=== PATIENT | female | born 1940 | race Caucasian/White ===

== ENCOUNTER 2017-01-01 12:33 | Emergency (ER) | payer MEDICARE, BC ==
--- NOTE | 2017-01-01 12:41 | ED Physician Chart ---
Chief Complaint/HPI - Patient Information Date Seen:: 01/01/17 Time Seen:: 12:41 Chief Complaint:: cough and leg wound History of Present Illness:: 76-year-old female complains of acute, constant, moderate, worse at night, nonproductive, cough 3 days. Also has a Complaint of acute, constant, moderate to severe, open leg wound on the right benavidez that happened about 5 days ago. Has associated surrounding erythema of the wound. Denies fevers, shortness of breath, chest pain, palpitations, headache, nausea, vomiting. Historian:: Patient Review:: Nurse's Note Reviewed Review of Systems - Review of Systems Other: Complete system review otherwise unremarkable except as noted in history of present illness. Past Medical History - Past Medical History Past Medical History: HTN, PUD/GERD, Thyroid disorder, Other (amyloidosis, CK-MB , GERD, hypothyroidism, hypertension) Family History: None Social History: Non Smoker, No Alcohol, No Drug Use, Other Surgical History: None Psychiatricy History: None Medication: Reviewed Family Medical History - Family Member mother Living Status: Hx Family Cancer: Yes (bone) Physical Exam - Physical Examination Other:: INITIAL VITAL SIGNS: Reviewed by me GENERAL: Alert and interactive. No acute distress HEAD: Head is normocephalic and atraumatic EYES: EOMI. PERRL. No scleral icterus. No conjunctival injection ENT: Moist mucous membranes. NECK: Supple. No masses. Full range of motion RESPIRATORY: No tachypnea. Slightly prolonged respiratory phase bilaterally. No wheezing, rales, or rhonchi CV: Regular rate and rhythm. No murmurs, rubs, or gallops ABDOMEN: Soft, non-distended, non-tender. No guarding. No rebound. No masses. EXTREMITIES: No deformity. No cyanosis. No edema. SKIN: Right benavidez has a 4 x 2 cm open wound with surrounding erythema. NEUROLOGIC: Alert and oriented. Face is symmetric. Speech is normal. Moves all extremities equally. Motor and sensory distally intact. Labs/Radiology/EKG Results - Lab Results Results: Lab Results 01/01/17 Range/Units 13:10 Urine Source CLEAN C Urine Color YELLOW Urine Clarity SL. CLOUDY (CLEAR) Urine pH 6.5 Ur Specific [place] 1.025 (1.005-1.030) Urine Protein >300 H (NEGATIVE) mg/dL Urine Glucose (UA) NEGATIVE (NEGATIVE) mg/dL Urine Ketones NEGATIVE (NEGATIVE) mg/dL Urine Blood TRACE (NEGATIVE) Urine Nitrate NEGATIVE (NEGATIVE) Urine Bilirubin NEGATIVE (NEGATIVE) Urine Urobilinogen 0.2 (0.2 - 1.0) E.U./dL Ur Leukocyte Esterase SMALL H (NEGATIVE) Urine RBC 0-2 (0-5) /hpf Urine WBC 25-50 H (0-5) /hpf Ur Epithelial Cells OCCASIONAL (FEW) /lpf Urine Bacteria MANY (NONE SEEN) /hpf - Radiology Results Results: Single AP VIEW Portable Chest X-ray was interpreted independently and contemporaneously by Yu Conteh MD: No cardiomegaly Normal mediastinum No lung infiltrates No pneumothorax No soft tissue or bony abnormalities ED Septic Shock - . Is Septic Shock (SBP<90, OR Lactate>4 mmol\L) present?: No Reassessment (Disposition) - Reassessment Reassessment:: Patient presents with acute cough for the past 3 days. Has nonproductive cough. Has slightly poor respiratory phase bilaterally on exam. Likely has viral bronchitis. Also has wound to the right benavidez area. Wound appears to have some surrounding cellulitis. Gave IV Rocephin and IV fluids here in the ER. Also has urinary tract infection. We will prescribe antibiotics both oral and topical. Recommend follow-up with primary care 1-2 days for wound check. Return to ER precautions given. Patient says she understands and agrees with the plan. Reassessment Condition:: Improved - Diagnosis Diagnosis:: Acute cellulitis of right lower extremity, and initial visit Acute bronchitis, unspecified Acute urinary tract, unspecified, with hematuria - Aftercare/Follow up Instructions Aftercare/Follow-Up Instructions:: Counseled pt regarding lab results/diagnosis & need follow up, Refer to Discharge Instructions Medication Prescribed:: Cephalexin Doxycycline Mupirocin - Patient Disposition Discharge/Transfer:: Home Time:: 13:50 Condition at Disposition:: Improved ED Discharge Plan - Patient Disposition Admit/Discharge/Transfer: PT DISCHARGED HOME Condition at Disposition: Improved Instructions: Cellulitis, Urinary Tract Infection, Bronchitis, [id number]
[2017-01-01] MEDS: Sodium Chloride 0.9% 1,000 ML IV ONE (13:30)
[2017-01-01] MEDS: cefTRIAXone 1 GM in Sodium Chloride 0.9% 50 ML IV ONE (13:31)
[2017-01-01 13:36] LABS: URINE BILIRUBIN NEGATIVE (NEGATIVE); URINE BLOOD TRACE (NEGATIVE); URINE COLOR YELLOW; URINE GLUCOSE (UA) NEGATIVE (NEGATIVE); URINE KETONE NEGATIVE (NEGATIVE); URINE PH 6.5
[2017-01-01 13:37] LABS: URINE EPITHELIAL CELLS OCCASIONAL /lpf (FEW); URINE PROTEIN >300 mg/dL (NEGATIVE); URINE RBC 0-2 /hpf (0-5); URINE UROBILINOGEN 0.2 E.U./dL (0.2 - 1.0); URINE WBC 25-50 /hpf (0-5)
[2017-01-01 13:38] LABS: URINE BACTERIA MANY /hpf (NONE SEEN)
[2017-01-01] MEDS ORDERED: Bacitracin pkt 1 gm Pkt TP ONE (14:20)
[2017-01-01] MEDS: Bacitracin pkt 1 gm Pkt TP STA (14:34)
--- NOTE | 2017-01-01 15:24 | Diagnostic Imaging Report ---
Portable chest x-ray HISTORY: Cough The overall heart size is difficult to assess with portable technique in a poor inspiration. Atherosclerotic calcification seen in the aorta. No acute focal pulmonary processes. IMPRESSION: 1. No acute pulmonary processes 2. Atherosclerotic vascular changes
== END 2017-01-01 14:35 | disposition home or self-care (01) ==
LOC: ER 12:33
DX: L03.115 Cellulitis of right lower limb (principal); J20.9 Acute bronchitis, unspecified; N39.0 Urinary tract infection, site not specified; R31.9 Hematuria, unspecified; K21.9 Gastro-esophageal reflux disease without esophagitis; I10 Essential (primary) hypertension; E07.9 Disorder of thyroid, unspecified; Z88.0 Allergy status to penicillin; Z88.2 Allergy status to sulfonamides; Z88.6 Allergy status to analgesic agent
CPT/HCPCS: 71010-TC; 81001-TC; 87086-90; J0696; J7030; Z7610

== ENCOUNTER 2017-01-03 09:55 | Emergency (ER) | payer MEDICARE, BC ==
--- NOTE | 2017-01-03 10:47 | ED Physician Chart ---
Chief Complaint/HPI - Patient Information Date Seen:: 01/03/17 Time Seen:: 10:30 Chief Complaint:: retching History of Present Illness:: 10 days ago the patient was getting onto a plane and she scraped her right benavidez on the foot stand of the wheelchair she was using. She was seen here 2 days ago and prescribed Keflex 500 mg 4 times a day. The last 5 days patient has had a cooperative [place] white sputum. No recent fever. Chest x-ray was taken here 2 days ago and was reported to her as normal. Patient was retching all night last night which she attributes to the multiple medications she takes. Allergies:: Allergies Allergy/AdvReac Type Severity Reaction Status Date / Time codeine Allergy Verified 01/01/17 12:55 Penicillins Allergy Verified 01/01/17 12:55 Sulfa (Sulfonamide Allergy Verified 01/01/17 12:55 Antibiotics) Historian:: Patient Review:: Nurse's Note Reviewed Review of Systems - Review of Systems General/Constitutional: No fever, No chills Skin: Skin lesions Head: No headache Eyes: No loss of vision ENT: No earache Neck: No neck pain, No swelling Cardio Vascular: No chest pain Pulmonary: No SOB, Cough GI: No nausea, No vomiting G/U: No dysuria, No hematuria Musculoskeletal: Bone or joint pain Endocrine: No polyuria Psychiatric: No prior psych history, No depression, No anxiety Hematopoietic: No lymphadenopathy Allergic/Immuno: No urticaria Neurological: No syncope Past Medical History - Past Medical History Past Medical History: HTN, Other (leukemia; multiple myeloma; amyloidosis; renal insufficiency) Social History: Other Employment:: Former smoker; she occasionally uses alcohol Surgical History: None Psychiatricy History: None Medication: Reviewed Family Medical History - Family Member mother Living Status: Hx Family Cancer: Yes (bone) Physical Exam - Physical Examination General/Constitutional: Well-developed, well-nourished, Alert, No distress Head: Atraumatic Eyes: Lids, conjuctiva normal, PERRL Other Skin comments:: Right pretibial area: There is a triangular 3 cm area of epidermal avulsion with fat visible; about 12 cm of erythema surround the area of epidermal fashion ENMT: External ears, nose nl, Lips, teeth, gums nl, Oropharynx nl, Tonsils nl Neck: No nuchal rigidity Respiratory: Nl effort/Exclusion, Clear to Auscultation, No Wheeze/Rhonchi/Rales Cardio Vascular: RRR, No murmur, gallop, rubs GI: No tenderness/rebounding/guarding, No organomegaly, No hernia, Normal BS's : No CVA tenderness Other Extremities comments:: See above under skin Neuro/Psych: Alert/oriented, No focal deficits Misc: Normal back Assessment - Assessment General Assessment: Patient told to continue the Keflex ED Septic Shock - . Is Septic Shock (SBP<90, OR Lactate>4 mmol\L) present?: No Reassessment (Disposition) - Reassessment Reassessment Condition:: Unchanged - Diagnosis Diagnosis:: Abrasion right benavidez; cellulitis right benavidez - Aftercare/Follow up Instructions Aftercare/Follow-Up Instructions:: Refer to Discharge Instructions Medication Prescribed:: Zofran 4 mg oral disintegrating tablet #20 to take one every 4 hours as necessary for nausea and vomiting - Patient Disposition Discharge/Transfer:: Home Condition at Disposition:: Stable, Unchanged
== END 2017-01-03 10:59 | disposition home or self-care (01) ==
LOC: ER 09:55
DX: S80.811A Abrasion, right lower leg, initial encounter (principal); I10 Essential (primary) hypertension; L03.115 Cellulitis of right lower limb; Z88.6 Allergy status to analgesic agent; Z88.0 Allergy status to penicillin; Z88.2 Allergy status to sulfonamides; X58.XXXA Exposure to other specified factors, initial encounter; Y93.89 Activity, other specified; Y92.89 Other specified places as the place of occurrence of the external cause; Y99.8 Other external cause status
CPT/HCPCS: Z7502; Z7610

== ENCOUNTER 2017-01-04 10:09 | Inpatient (IN) | payer MEDICARE, BC ==
[2017-01-04 11:02] LABS: % BASOPHILS 0.6 % (0.0-2.0); % EOSINOPHILS 0.5 % (0.0-5.0); % LYMPHOCYTES 8.9 % (20.0-50.0); % MONOCYTES 6.2 % (2.0-10.0); % NEUTROPHILS 83.8 % (40.0-80.0); HEMATOCRIT 37.6 % (35.0-45.0); HEMOGLOBIN 12.4 gm/dL (11.7-16.1); MEAN CELL VOLUME 86.5 fl (81-100); MEAN CORPUSCULAR HEMOGLOBIN 28.5 pg (27.0-31.0); MEAN PLATELET VOLUME 6.7 fl; NEUTROPHILE ABSOLUTE 8.2 Th/cmm (1.8-8.0); PLATELET COUNT 191 Th/cmm (150-400); RED BLOOD COUNT 4.35 Mil/cmm (3.80-5.20); RED CELL DISTRIBUTION WIDTH 18.3 % (11.5-20.0); WHITE BLOOD COUNT 9.8 Th/cmm (4.8-10.8)
[2017-01-04] MEDS ORDERED: Sodium Chloride 0.9% 1,000 ML IV ONE (11:04)
[2017-01-04 11:15] LABS: ALB/GLOB RATIO 1.2 (1.0-1.8); ALKALINE PHOSPHATASE 101 U/L (34-104); ANION GAP 12.1 (7.0-16.0); BILIRUBIN,TOTAL 0.5 mg/dL (0.3-1.0); BUN - UREA NITROGEN 17 mg/dL (7-25); BUN/CREATININE RATIO 13.1; CALCIUM SERUM 9.6 mg/dL (8.6-10.3); CARBON DIOXIDE 20.8 mEq/L (21.0-31.0); CHLORIDE 99 mEq/L (98-107); CHOLESTEROL 128 mg/dL (<200); CREATININE - SERUM 1.3 mg/dL (0.6-1.2); GLUCOSE 71 mg/dL (70-105); POTASSIUM SERUM 3.9 mEq/L (3.5-5.1); SGOT 25 U/L (13-39); SGPT/ALT 15 U/L (7-52); SODIUM SERUM 128 mEq/L (136-145); TRIGLYCERIDES 119 mg/dL (<150)
[2017-01-04 11:17] LABS: INR 0.98 (0.5-1.4); PROTHROMBIN TIME (TEST) 10.2 SECONDS (9.5-11.5)
[2017-01-04] MEDS ORDERED: Lactated Ringer 1,000 ML IV ONE (12:47)
--- NOTE | 2017-01-04 12:52 | ED Physician Chart ---
Chief Complaint/HPI - Patient Information Date Seen:: 01/04/17 Time Seen:: 10:40 Chief Complaint:: ABDOMINAL PAIN History of Present Illness:: THIS IS A 76 YO FEMALE WITH SEVERAL DAYS OF GENERALIZED ABDOMINAL PAIN AND VOMITING. SHE HAS BEEN IN THIS ER TWICE OVER THE LAST WEEK FOR THE SAME SYMPTOMS. SHE IS NOW UNABLE TO KEEP ANY FOOD OR MEDICATION DOWN. SHE WAS TREATED FOR A UTI WITH KEFLEX AND DICLOXACILLIN. SHE STATES THAT SHE THINKS THAT THE ANTIBIOTICS MAKE HER SICK. SHE IS ALSO CONCERNED ABOUT HER NON-PRODUCTIVE COUGH THAT SHE HAS HAD FOR SEVERAL DAYS. Allergies:: Allergies Allergy/AdvReac Type Severity Reaction Status Date / Time codeine Allergy Verified 01/01/17 12:55 Penicillins Allergy Verified 01/01/17 12:55 Sulfa (Sulfonamide Allergy Verified 01/01/17 12:55 Antibiotics) Vitals:: Vital Signs - 8 hr 01/04/17 10:29 Temp 99.7 F HR 999 RR 16 O2 Sat % 98 Historian:: Patient Review:: Nurse's Note Reviewed, Old Chart Reviewed Review of Systems - Review of Systems General/Constitutional: No fever, No chills, No weight loss, No weakness, No diaphoresis, No edema, Loss of appetite Skin: No skin lesions, No rash, No bruising Head: No headache, No light-headedness Eyes: No loss of vision, No pain, No diplopia ENT: No earache, No nasal drainage, No sore throat, No tinnitus Neck: No neck pain, No swelling, No thyromegaly, No stiffness, No mass noted Cardio Vascular: No chest pain, No palpitations, No PND, No orthopnea, No edema Pulmonary: No SOB, Cough, No sputum, No wheezing GI: Nausea, Vomiting, No diarrhea, Pain, No melena, No hematochezia, No constipation, No hematemesis G/U: No dysuria, No frequency, Hematuria Musculoskeletal: No bone or joint pain, No back pain, No muscle pain Endocrine: No polyuria, No polydipsia Psychiatric: No prior psych history, No depression, No anxiety, No suicidal ideation Hematopoietic: No bruising, No lymphadenopathy Allergic/Immuno: No urticaria, No angioedema Neurological: No syncope, No focal symptoms, No weakness, No paresthesia, No headache, No seizure, No dizziness, No confusion, No vertigo Past Medical History - Past Medical History Obtainable: Yes Past Medical History: HTN, PUD/GERD, Thyroid disorder, Other (AMYLOIDOSIS) Family History: Heart disease, HTN Social History: Non Smoker, No Alcohol, No Drug Use Surgical History: None Psychiatricy History: None Medication: Reviewed Family Medical History - Family Member Father History Unknown: Yes Hx Family Coronary Artery Disease: Yes Hx Family Hypertension: Yes mother Living Status: Hx Family Cancer: Yes (bone) Hx Family Coronary Artery Disease: Yes Physical Exam - Physical Examination General/Constitutional: Awake, Well-developed, well-nourished, Alert, No distress, GCS 15, Non-toxic appearing, Ambulatory Head: Atraumatic Eyes: Lids, conjuctiva normal, PERRL, EOMI Skin: Nl inspection, No rash, No skin lesions, No ecchymosis, Well hydrated, No lymphadenopathy ENMT: External ears, nose nl, Nasal exam nl, Lips, teeth, gums nl Neck: Nontender, Full ROM w/o pain, No JVD, No nuchal rigidity, No bruit, No mass, No stridor Respiratory: Nl effort/Exclusion, Clear to Auscultation Other Respiratory comments:: BILATERAL RHONCHI HEARD Cardio Vascular: RRR, No murmur, gallop, rubs, NL S1 S2 GI: No tenderness/rebounding/guarding (THERE IS TENDERNESS OVER THE EPIGASTRIC AREA.), No organomegaly, No hernia, Normal BS's, Nondistended, No mass/bruits, No McBurney tenderness : No CVA tenderness Extremities: No tenderness or effusion, Full ROM, normal strength in all extremities, No edema, Normal digits & nails Neuro/Psych: Alert/oriented, DTR's symmetric, Normal sensory exam, Normal motor strength, Judgement/insight normal, Mood normal, Normal gait, No focal deficits Misc: normal gait, Normal back, No paraspinal tenderness Labs/Radiology/EKG Results - Lab Results Results: Laboratory Tests 01/04/17 01/04/17 01/04/17 10:49 10:49 10:49 WBC 9.8 RBC 4.35 Hgb 12.4 Hct 37.6 MCV 86.5 MCH 28.5 MCHC Differential 33.0 RDW 18.3 Plt Count 191 MPV 6.7 Neutrophils % 83.8 H Lymphocytes % 8.9 L Monocytes % 6.2 Eosinophils % 0.5 Basophils % 0.6 PT 10.2 INR 0.98 PTT (Actin FS) 24.2 L Sodium 128 L Potassium 3.9 Chloride 99 Carbon Dioxide 20.8 L Anion Gap 12.1 BUN 17 Creatinine 1.3 H Est GFR ( Amer) TNP Est GFR (Non-Af Amer) TNP BUN/Creatinine Ratio 13.1 Glucose 71 Calcium 9.6 Total Bilirubin 0.5 AST 25 ALT 15 Alkaline Phosphatase 101 Troponin I Total Protein 7.1 Albumin 3.8 Globulin 3.3 Albumin/Globulin Ratio 1.2 Triglycerides 119 Cholesterol 128 LDL Cholesterol Direct 71 L HDL Cholesterol 36 TSH Ethyl Alcohol < 10 01/04/17 01/04/17 10:49 10:49 WBC RBC Hgb Hct MCV MCH MCHC Differential RDW Plt Count MPV Neutrophils % Lymphocytes % Monocytes % Eosinophils % Basophils % PT INR PTT (Actin FS) Sodium Potassium Chloride Carbon Dioxide Anion Gap BUN Creatinine Est GFR ( Amer) Est GFR (Non-Af Amer) BUN/Creatinine Ratio Glucose Calcium Total Bilirubin AST ALT Alkaline Phosphatase Troponin I 0.03 Total Protein Albumin Globulin Albumin/Globulin Ratio Triglycerides Cholesterol LDL Cholesterol Direct HDL Cholesterol TSH 6.87 H Ethyl Alcohol - EKG Interpretations EKG Time:: 13:12 Rate & Rhythm: rate =73, sius [place]: left Assessment - Assessment General Assessment: THIS PATIENT IS DEHYDRATED AND HAVING DIFFICULTY WITH ABDOMINAL PAIN FROM HER REACTION TO HER ANTIBIOTICS. SHE ALSO SIGNIFICANT NAUSEA. SINCE SHE NEEDS HYDRATION, HER TSH IS ELEVATED AND HER TROPONIN IS GOING UP, SHE WILL NEED TO BE MONITORED. ED Septic Shock - . Is Septic Shock (SBP<90, OR Lactate>4 mmol\L) present?: No - <6hrs of presentation: Vital Signs: Vital Signs - 8 hr 01/04/17 10:29 Temp 99.7 F HR 999 RR 16 O2 Sat % 98 Reassessment (Disposition) - Reassessment Reassessment Condition:: Improved - Diagnosis Diagnosis:: ABDOMINAL PAIN ALLERGIC REACTION THYROID DISEASE - Patient Disposition Discharge/Transfer:: Acute Care w/in this hosp Admitted to:: Telemetry Admitting Medical Physician:: Katty Townsend Condition at Disposition:: Improved ED Discharge Plan - Patient Disposition Admit/Discharge/Transfer: Acute Care w/in this hosp Condition at Disposition: Improved
[2017-01-04 12:55] LABS: URINE COLOR YELLOW
[2017-01-04 12:56] LABS: URINE BILIRUBIN NEGATIVE (NEGATIVE); URINE BLOOD TRACE (NEGATIVE); URINE GLUCOSE (UA) NEGATIVE (NEGATIVE); URINE KETONE NEGATIVE (NEGATIVE); URINE PH 6.5; URINE PROTEIN 100 mg/dL (NEGATIVE); URINE UROBILINOGEN 0.2 E.U./dL (0.2 - 1.0)
[2017-01-04 12:59] LABS: URINE BACTERIA OCCASIONAL /hpf (NONE SEEN); URINE EPITHELIAL CELLS OCCASIONAL /lpf (FEW); URINE WBC NONE SEEN /hpf (0-5)
[2017-01-04 13:09] LABS: AMPHETAMINE URINE NEGATIVE (NEGATIVE); BARBITURATES URINE NEGATIVE (NEGATIVE); METHADONE URINE NEGATIVE (NEGATIVE)
[2017-01-04] MEDS: Pantoprazole 40 mg EC Tab PO SCH (17:43)
[2017-01-04] MEDS: D5W w/20 mEq KCL 1,000 ML IV SCH (17:46)
[2017-01-04] MEDS ORDERED: Azithromycin 500 mg in 0.9% NS 250 mL IV ONE (23:15)
[2017-01-05] MEDS: Albuterol/Ipratropium Neb 3 ML AERS HHN SCH ×4 (00:14→18:41)
--- NOTE | 2017-01-05 01:09 | History & Physical ---
ADMIT DATE: 01/04/2017 CHIEF COMPLAINT: Cough, shortness of breath, generalized weakness, nausea, vomiting. HISTORY OF PRESENT ILLNESS: The patient is a 76-year-old female with long history of hypertension, hypothyroidism, amyloidosis, visiting from [place], presented to the Emergency Room with cough, shortness of breath and generalized weakness. The patient was evaluated by the ER physician. Initial workup significant for pneumonia, hyponatremia and dehydration. The patient was started on IV fluid, antibiotic, breathing treatment, and admitted to the hospital. She has nausea, no vomiting. No diarrhea. PAST MEDICAL HISTORY: Significant for hypertension, hypothyroidism, and amyloidosis. PAST SURGICAL HISTORY: Hysterectomy. ALLERGIES: None. MEDICATIONS: Follow admission reconciliation. SOCIAL HISTORY: No smoking, alcohol or drugs. FAMILY HISTORY: Noncontributory. REVIEW OF SYSTEMS: RENAL SYSTEM: No history of chronic renal disorder. CARDIOVASCULAR SYSTEM: No coronary artery disease. ENDOCRINE SYSTEM: She has history of hypothyroidism. GASTROINTESTINAL SYSTEM: No upper or lower gastrointestinal bleed. NEUROLOGICAL SYSTEM: No seizure disorder. MUSCULOSKELETAL SYSTEM: No muscular dystrophy. HEMATOLOGIC SYSTEM: No hematemesis. RESPIRATORY SYSTEM: She has pneumonia. PHYSICAL EXAMINATION: GENERAL: She is awake, alert, oriented. VITAL SIGNS: Temperature 98.6, heart rate 97, blood pressure 129/78. HEENT: Normocephalic. Pupils reacting to light and accommodation. Sclerae clear. NECK: Supple. Negative for lymphadenopathy, JVD or bruit. CHEST: ____ bilateral, mild diminished. No wheezing. HEART: S1, S2 normal, no gallop. ABDOMEN: Soft, bowel sounds positive. EXTREMITIES: No edema. NEUROLOGIC: She is awake, alert, oriented. No focal motor or sensory deficits. Cranial nerves 2-12 intact. LABORATORY DATA: White blood cells 9.8, hemoglobin 12.4, hematocrit 37.6, platelets 191. PT 12.2, INR 0.98. Sodium 128, potassium 3.9, BUN 70, creatinine 1.3. ASSESSMENT: 1. Pneumonia. 2. Hyponatremia. 3. Hypertension. 4. Hypothyroidism. 5. Amyloidosis. PLAN: The patient is in the hospital under Dr. Townsend's service. Started on IV fluids, regular diet. The patient will resume her medication and IV antibiotic, breathing treatment. CBC, CMP for tomorrow. The patient is a full code. [facility]# [id number]
--- NOTE | 2017-01-05 03:12 | Admit Criteria Form ---
Admit Criteria Forms - Admit Criteria Diagnosis: ABDOMINAL PAIN Clinical Indications for Admission to Inpatient Care (Place 'X' for any and all applicable criteria): Admission is indicated for ANY ONE of the following(1)(2)(3)(4)(5): [ ]I. Inpatient admission required rather than observation care (Also use Abdominal Pain: Observation Care, as appropriate) because of ANY ONE of the following: [ ]a) Severe pain requiring acute inpatient management [ ]b) Identification of etiology/finding that requires inpatient care (eg, aortic dissection, free air) [ ]c) Absent bowel sounds with complete ileus(6) [ ]d) Suspected toxic megacolon [ ]e) Severe electrolyte abnormalities requiring inpatient care [ ]f) High fever or infection requiring inpatient admission as indicated by ANY ONE of following(7)(8): [ ] i) Appropriate outpatient or observational care antimicrobial treatment unavailable, not effective, or not feasible [ ] ii) Documented bacteremia [ ] iii) Temperature > 104.9 degrees F (oral) [ ] iv) T >103.1 F (oral) or < 96.8 F(rectal) that does not respond to all emergency treatment measures [ ]g) Signs of intestinal obstruction [B] [ ]h) Hemodynamic instability [ ]i) IV fluid to replace significant ongoing losses (greater than 3 L/m2 per day) (12)(13) [ ]j) Percutaneous or open drainage (eg, abscess, biliary tract ) procedures [ ]k) Parenteral nutrition regimen that must be implemented on inpatient basis [ ]l) Other condition,treatment or monitoring requiring inpatient admission. [ ]II. Peritoneal signs present [ ]III. Surgery needed that cannot be performed on an ambulatory basis. [ ]IV. Evaluation requires patient to not eat or drink for extended period ( eg, more than 24 hours). [ ]V. Contraindications and/or Inappropriate clinical situations for Observational Care in patients with abdominal pain, when ANY ONE of the following is required: [ ]a) Thorough evaluation is required to prevent catastrophic events due to delays in diagnosing (e.g.Mesenteric ischemia) 1,3 [ ]b) Patient with severe pathology or with chronic symptoms unlikely to improve in the ED stay (3) [X]. General contraindications and/or Inappropriate clinical situations for Observational Care in patients with abdominal pain, when ANY ONE of the following is required: [X]a) Prediction of prolongation of LOS based on ANY ONE of the following may be considered as a contraindication for observational care 2, 3, 4, 5, 6, 7, 8, 9, 10, 11 [X]i) Age > 65 yrs. [ ]ii) Patient arriving by ambulance [ ]iii) Patient with high acuity [ ]iv) Patient requiring vital sign monitoring [X]v) Patient on IV medication [ ]b) Systolic blood pressures 180mmHg 3,12 [ ]c) Patient with altered mental status including delirium and other alteration of consciousness, (3) [ ]d) Patient whose discharge disposition will be to a half-way home or rehabilitation home should not be managed in Emergency Department Observation Unit. CMS rule requires 3 days hospital stay before such placement.3,13 [ ]e) Patient with failure to thrive due to broad array of etiologies 3,16,17 [ ]f) Inability to ambulate 3,14 Extended stay beyond goal length of stay may be needed for(2)(3): [ ]a) Persistent abdominal pain with suspected intra-abdominal process [ ]b) Diagnosed condition requiring continued stay (e.g., pancreatitis, complicated diverticulitis) [ ]c) Surgery (e.g., colectomy) The original [employer] content created by [employer] has been revised. The portions of the content which have been revised are identified through the use of italic text or in bold, and [facility] has neither reviewed nor approved the modified material.All other unmodified content is copyright [facility] [employer]. Please see references footnoted in the original [facility] edition 2016 Admit Criteria Met?: Yes
[2017-01-05 05:19] LABS: % EOSINOPHILS 0.2 % (0.0-5.0); % LYMPHOCYTES 5.2 % (20.0-50.0); % MONOCYTES 7.5 % (2.0-10.0); % NEUTROPHILS 87.1 % (40.0-80.0); HEMOGLOBIN 10.6 gm/dL (11.7-16.1); MEAN CELL VOLUME 85.6 fl (81-100); MEAN CORPUSCULAR HEMOGLOBIN 28.8 pg (27.0-31.0); MEAN CORPUSCULAR HGB CONC 33.7 pg (28.0-36.0); MEAN PLATELET VOLUME 6.6 fl; NEUTROPHILE ABSOLUTE 7.1 Th/cmm (1.8-8.0); PLATELET COUNT 160 Th/cmm (150-400); RED BLOOD COUNT 3.66 Mil/cmm (3.80-5.20); RED CELL DISTRIBUTION WIDTH 17.7 % (11.5-20.0); WHITE BLOOD COUNT 8.1 Th/cmm (4.8-10.8)
[2017-01-05 05:28] LABS: ALB/GLOB RATIO 1.1 (1.0-1.8); ALKALINE PHOSPHATASE 80 U/L (34-104); ANION GAP 12.2 (7.0-16.0); BILIRUBIN,TOTAL 0.3 mg/dL (0.3-1.0); BUN - UREA NITROGEN 15 mg/dL (7-25); BUN/CREATININE RATIO 12.5; CALCIUM SERUM 8.4 mg/dL (8.6-10.3); CARBON DIOXIDE 18.9 mEq/L (21.0-31.0); CHLORIDE 102 mEq/L (98-107); CREATININE - SERUM 1.2 mg/dL (0.6-1.2); GLUCOSE 94 mg/dL (70-105); MAGNESIUM 1.6 mg/dL (1.9-2.7); POTASSIUM SERUM 4.1 mEq/L (3.5-5.1); SGOT 20 U/L (13-39); SGPT/ALT 11 U/L (7-52); SODIUM SERUM 129 mEq/L (136-145)
[2017-01-05 05:39] LABS: HEMATOCRIT 31.4 % (35.0-45.0)
[2017-01-05] MEDS: Levothyroxine 0.05 Mg Tab PO SCH (06:46)
[2017-01-05] MEDS: D5W w/20 mEq KCL 1,000 ML IV SCH ×2 (06:47→18:14)
[2017-01-05] MEDS ORDERED: PREDNISONE PO SCH (09:00)
[2017-01-05] MEDS: cefTRIAXone 1 GM in Sodium Chloride 0.9% 50 ML IV SCH (09:22)
[2017-01-05] MEDS: Pantoprazole 40 mg EC Tab PO SCH ×2 (09:23→17:03)
[2017-01-05] MEDS: Azithromycin 500 MG in Sodium Chloride 0.9% 250 ML IV SCH (20:39)
[2017-01-06] MEDS: Albuterol/Ipratropium Neb 3 ML AERS HHN SCH ×4 (00:46→18:50)
[2017-01-06] MEDS: Levothyroxine 0.05 Mg Tab PO SCH (06:37)
[2017-01-06] MEDS: D5W w/20 mEq KCL 1,000 ML IV SCH (06:37)
[2017-01-06] MEDS: cefTRIAXone 1 GM in Sodium Chloride 0.9% 50 ML IV SCH (08:44)
[2017-01-06] MEDS: Pantoprazole 40 mg EC Tab PO SCH ×2 (08:45→16:54)
[2017-01-06] MEDS: Azithromycin 500 MG in Sodium Chloride 0.9% 250 ML IV SCH (21:36)
[2017-01-07] MEDS: Albuterol/Ipratropium Neb 3 ML AERS HHN SCH ×4 (00:41→18:48)
[2017-01-07] MEDS: D5W w/20 mEq KCL 1,000 ML IV SCH ×2 (03:54→18:27)
[2017-01-07 05:27] LABS: HEMATOCRIT 33.1 % (35.0-45.0); MEAN CELL VOLUME 86.4 fl (81-100); MEAN CORPUSCULAR HEMOGLOBIN 28.7 pg (27.0-31.0); MEAN CORPUSCULAR HGB CONC 33.1 pg (28.0-36.0); MEAN PLATELET VOLUME 6.2 fl; PLATELET COUNT 147 Th/cmm (150-400); RED BLOOD COUNT 3.83 Mil/cmm (3.80-5.20); RED CELL DISTRIBUTION WIDTH 18.2 % (11.5-20.0); WHITE BLOOD COUNT 6.9 Th/cmm (4.8-10.8)
[2017-01-07 05:43] LABS: ANION GAP 9.1 (7.0-16.0); BUN - UREA NITROGEN 12 mg/dL (7-25); CALCIUM SERUM 8.8 mg/dL (8.6-10.3); CARBON DIOXIDE 22.3 mEq/L (21.0-31.0); CHLORIDE 105 mEq/L (98-107); CREATININE - SERUM 1.2 mg/dL (0.6-1.2); GLUCOSE 59 mg/dL (70-105); POTASSIUM SERUM 4.4 mEq/L (3.5-5.1); SODIUM SERUM 132 mEq/L (136-145)
[2017-01-07] MEDS: Levothyroxine 0.05 Mg Tab PO SCH (06:36)
[2017-01-07] MEDS: Pantoprazole 40 mg EC Tab PO SCH ×2 (08:23→17:32)
[2017-01-07] MEDS: cefTRIAXone 1 GM in Sodium Chloride 0.9% 50 ML IV SCH (08:27)
[2017-01-07 08:29] LABS: BAND NEUTROPHILE 6 % (0-10); BASOPHIL 1 % (0-3); EOSINOPHIL 2 % (0-5); NEUTROPHILS 77 % (40-80); PLATELET ESTIMATE DECREASED PLATELETS (NORMAL); PLATELET MORPHOLOGY NORMAL (NORMAL); TOTAL CELLS COUNTED 100
--- NOTE | 2017-01-07 16:11 | Diagnostic Imaging Report ---
CT Chest without IV contrast HISTORY: Pain COMPARISON: Chest x-ray on the 01/01/[address] abdomen and pelvis on 01/07/2017. Technique: Axial images were obtained from the base of the neck to the upper abdomen without administration of IV contrast. Coronal reconstructions were made. Total DLP 217 CTD I 5.2 Findings: Evaluation of the mediastinum is limited due to lack of IV contrast. Ectatic aorta is seen measuring up to 3.6 cm. Moderate atherosclerotic vascular disease is noted. Heart size is normal. Trace pericardial fluid is noted. No mediastinal adenopathy. There is a moderate to large size hiatal hernia. There is elevation of the right hemidiaphragm. Chronic lung changes are seen with 1.8 cm bulla within the anterior aspect of the left upper lobe. Atelectatic and hypoventilatory lung changes are seen. Few patchy Nodular infiltrates are seen primarily of the right lower lobe with bibasal consolidative changes. The largest nodular infiltrate measures 1 cm within the right lower lobe. Trace bilateral pleural effusions are noted. No evidence of pneumothorax. Advanced degenerative changes of the spine are noted with scoliosis. Old lower thoracic spinal compression deformities are noted. IMPRESSION: Few patchy nodular bilateral lower lung zone infiltrates right greater than left, with bibasal consolidative changes. The largest nodular infiltrate measures 1 cm within the right lower lobe. Findings may be due to infectious pneumonia. Neoplastic process is less likely, however, clinical correlation and follow-up after resolution of acute symptoms is recommended for further assessment/monitoring. Trace bilateral pleural effusions. Moderate to large size hiatal hernia Moderate atherosclerosis with ectatic aorta measuring up to 3.6 cm.
--- NOTE | 2017-01-07 16:18 | Diagnostic Imaging Report ---
CT abdomen and pelvis without intravenous contrast Indication: Abdominal pain Comparison: Chest CT the same day, Technique: Axial images were obtained from the lung bases to the bilateral proximal femurs without IV contrast. Coronal reconstructions were made. total DLP: 455, CTDI8.6 FINDINGS: Bibasal infiltrates are seen with small bilateral effusions. Please refer to recent chest CT for further details. A moderate to large hiatal hernia is noted. Assessment of the solid organs is limited due to lack of IV contrast. No evidence of focal hepatic, splenic, or pancreatic lesions. No focal adrenal lesions. No hydronephrosis or focal renal lesions. Mild nonspecific bilateral perinephric inflammatory changes are noted. Distended urinary bladder is noted. Small fat-containing left inguinal hernia is noted. Diverticulosis is noted. Moderate stool is seen with throughout the colon with fluid and gas-filled distended loops of bowel. No evidence of acute appendicitis. No free air or free fluid. Moderate atherosclerosis is noted. Degenerative changes of the spine and pelvis are noted with spinal scoliosis. IMPRESSION: No evidence of acute appendicitis. Diverticulosis without evidence of diverticulitis. Moderate distended fluid-filled loops of bowel. Underlying inflammatory process cannot be excluded. Moderate to large sized hiatal hernia. Moderate atherosclerosis. Small fat-containing left inguinal hernia Distended urinary bladder.
[2017-01-07] MEDS: Azithromycin 500 MG in Sodium Chloride 0.9% 250 ML IV SCH (21:28)
[2017-01-08] MEDS: Albuterol/Ipratropium Neb 3 ML AERS HHN SCH ×4 (00:33→18:57)
[2017-01-08] MEDS: Levothyroxine 0.05 Mg Tab PO SCH (06:46)
[2017-01-08] MEDS: Venelex 60gm Tube TP SCH (09:05)
[2017-01-08] MEDS: Pantoprazole 40 mg EC Tab PO SCH ×2 (09:05→18:01)
[2017-01-08] MEDS: cefTRIAXone 1 GM in Sodium Chloride 0.9% 50 ML IV SCH (09:12)
[2017-01-08] MEDS: D5-0.45NS w/20 mEq KCL 1,000 ML IV SCH (13:55)
[2017-01-08] MEDS: Azithromycin 500 MG in Sodium Chloride 0.9% 250 ML IV SCH (20:48)
[2017-01-09] MEDS: Albuterol/Ipratropium Neb 3 ML AERS HHN SCH ×4 (00:59→19:28)
[2017-01-09] MEDS: Levothyroxine 0.05 Mg Tab PO SCH (06:47)
[2017-01-09 07:01] LABS: % BASOPHILS 0.1 % (0.0-2.0); % LYMPHOCYTES 6.5 % (20.0-50.0); % MONOCYTES 4.6 % (2.0-10.0); % NEUTROPHILS 87.8 % (40.0-80.0); HEMATOCRIT 32.3 % (35.0-45.0); HEMOGLOBIN 10.7 gm/dL (11.7-16.1); MEAN CELL VOLUME 85.3 fl (81-100); MEAN CORPUSCULAR HEMOGLOBIN 28.2 pg (27.0-31.0); MEAN CORPUSCULAR HGB CONC 33.1 pg (28.0-36.0); MEAN PLATELET VOLUME 6.6 fl; PLATELET COUNT 178 Th/cmm (150-400); RED BLOOD COUNT 3.79 Mil/cmm (3.80-5.20)
[2017-01-09 08:43] LABS: ALB/GLOB RATIO 1.2 (1.0-1.8); ALKALINE PHOSPHATASE 85 U/L (34-104); ANION GAP 9.5 (7.0-16.0); BILIRUBIN,TOTAL 0.4 mg/dL (0.3-1.0); BUN - UREA NITROGEN 13 mg/dL (7-25); BUN/CREATININE RATIO 9.3; CALCIUM SERUM 8.8 mg/dL (8.6-10.3); CARBON DIOXIDE 22.9 mEq/L (21.0-31.0); CHLORIDE 102 mEq/L (98-107); CREATININE - SERUM 1.4 mg/dL (0.6-1.2); GLUCOSE 75 mg/dL (70-105); POTASSIUM SERUM 4.4 mEq/L (3.5-5.1); SGOT 20 U/L (13-39); SGPT/ALT 12 U/L (7-52); SODIUM SERUM 130 mEq/L (136-145)
[2017-01-09] MEDS: Pantoprazole 40 mg EC Tab PO SCH ×2 (09:03→16:53)
[2017-01-09] MEDS: cefTRIAXone 1 GM in Sodium Chloride 0.9% 50 ML IV SCH (09:04)
[2017-01-09] MEDS: Venelex 60gm Tube TP SCH (09:15)
[2017-01-09] MEDS: D5-0.45NS w/20 mEq KCL 1,000 ML IV SCH (17:51)
[2017-01-09] MEDS: Azithromycin 500 MG in Sodium Chloride 0.9% 250 ML IV SCH (20:49)
[2017-01-10] MEDS: Albuterol/Ipratropium Neb 3 ML AERS HHN SCH ×3 (00:52→14:45)
[2017-01-10] MEDS: Levothyroxine 0.05 Mg Tab PO SCH (07:01)
[2017-01-10] MEDS: Pantoprazole 40 mg EC Tab PO SCH (08:18)
[2017-01-10] MEDS: Venelex 60gm Tube TP SCH (08:21)
[2017-01-10] MEDS: cefTRIAXone 1 GM in Sodium Chloride 0.9% 50 ML IV SCH (11:02)
--- NOTE | 2017-02-01 19:06 | Discharge Summary ---
DATE OF DISCHARGE: 01/10/2017 FINAL DIAGNOSES: 1. Pneumonia. 2. Hyponatremia. 3. Hypertension. 4. Hypothyroidism. 5. Amyloidosis. REVIEW OF HISTORY: The patient is a 76-year-old female with long history of hypertension, hypothyroidism, amyloidosis, presented to the Emergency Room with cough, shortness of breath, generalized weakness, evaluated by the ER physician. Initial workup was significant for pneumonia. Admitted to the medical floor, started on IV fluid, IV antibiotic. PHYSICAL EXAMINATION: GENERAL: On admission, she was awake, alert, and oriented. VITAL SIGNS: Temperature was 98.6, heart rate 97, blood pressure 129/78. CHEST: Diminished breathing with rhonchi. HEART: S1, S2 normal. ABDOMEN: Soft, bowel sounds positive. LABS: White blood cells 9.8, hemoglobin 12.4. COURSE OF HOSPITALIZATION: During hospitalization, the patient improved clinically. On 01/07/2017, the patient still had cough, congestion, no fever, no chills. Chest, mild diminished breathing sound. Heart: S1, S2 normal. Abdomen: Soft, bowel sounds positive. On 01/09/2017, the patient was afebrile. Chest was clear to auscultation. Abdomen: Soft, bowel sounds positive. DISPOSITION: On 01/10/2017, the patient looked clinically stable. No fever, no chills. Chest was clear to auscultation. Abdomen was soft, bowel sounds positive. DISPOSITION: The patient discharged home with 01/10/2017, to be followed up with primary care physician in 1 week. CONDITION ON DISCHARGE: Stable. MEDICATIONS: Follow discharge reconciliation. JOB# [id number]
== END 2017-01-10 16:35 | disposition home or self-care (01) | DRG 194 ==
LOC: ER 10:09 → MSI 14:45 → TELE 19:21
PROVIDERS: ADMIT Family Medicine; ATTEND Family Medicine
DX: J18.9 Pneumonia, unspecified organism (principal); E87.1 Hypo-osmolality and hyponatremia; E85.9 Amyloidosis, unspecified; J44.9 Chronic obstructive pulmonary disease, unspecified; E86.0 Dehydration; I10 Essential (primary) hypertension; D64.9 Anemia, unspecified; E03.9 Hypothyroidism, unspecified; K21.9 Gastro-esophageal reflux disease without esophagitis; E07.9 Disorder of thyroid, unspecified; K57.90 Diverticulosis of intestine, part unspecified, without perforation or abscess without bleeding; Z88.5 Allergy status to narcotic agent; Z88.0 Allergy status to penicillin; Z88.2 Allergy status to sulfonamides; Z82.49 Family history of ischemic heart disease and other diseases of the circulatory system; Z90.710 Acquired absence of both cervix and uterus; Z87.11 Personal history of peptic ulcer disease
CPT/HCPCS: 36415-UA; 71250-TC; 80048-TC; 80053-TC; 80061-TC; 80307; 80320-TC; 81001-TC; 83735-TC; 84443-TC; 84484-TC; 85007-TC; 85025-TC; 85027-TC; 85610-TC; 85730-TC; 86592-TC; 90784; 93005; 94640; 94760; 96374; 96375; J0456; J0696; J1885; J2405; J2930; J3480; J7030; J7040; Z7610